=== PATIENT | female | born 1990 ===

== ENCOUNTER 2018-03-20 08:09 | Emergency (ER) | payer OTHER ==
[~2018-03-20] VITALS: Ht 167.6 cm; Wt 78.5 kg
[~2018-03-20 08:09] MED LIST: AMOX1TAB12 PO; NIFEDIPINE ER30 MG PO; PRENATALES; PROMETHAZINE HC50 MG PO
== END 2018-03-20 13:53 | disposition home or self-care (01) ==
LOC: ER 08:09
DX: K52.9 Noninfective gastroenteritis and colitis, unspecified (principal)